=== PATIENT | female | born 1955 | race Caucasian/White ===

== ENCOUNTER 2017-04-03 08:57 | Inpatient (IN) | payer BC ==
[~2017-04-03] VITALS: Ht 149.9 cm; Wt 78.2 kg
[~2017-04-03 08:57] MED LIST: ASPIRIN81 M2 PO; LEXAPRO10 MG PO; MEVACOR40 MG PO; NORVASC10 MG PO; PREVACID15 MG PO; ZESTORETIC 20-1 EAC1 PO
[2017-04-24] MEDS ORDERED: CRESTOR20 MG PO (14:09)
[2017-04-26] VITALS (9 sets, daily range): BP systolic 101–145; BP diastolic 43–68
[2017-04-26 12:11] LABS: METH RESISTANT S AUREUS PCR POSITIVE (NEGATIVE)
[2017-04-26 12:21] LABS: PROBE CHECK PASS
[2017-04-26] MEDS ORDERED: TRAMADOL HCL50 MG PO (15:07)
[2017-04-27 00:05] VITALS: BP 126/50
[2017-04-27 05:17] VITALS: BP 138/60
[2017-04-27 08:47] VITALS: BP 159/80
[2017-04-27 11:13] VITALS: BP 127/57
== END 2017-04-27 12:38 | disposition home or self-care (01) | DRG 39 ==
LOC: 2SOUTH 08:57 → 4WEST 04-26 10:44 → 2SOUTH 04-26 13:46 → 4EAST 04-26 17:58 → 4WEST 04-26 17:58 → 4EAST 04-27 12:38
PROVIDERS: Surgery
DX: I65.23 Occlusion and stenosis of bilateral carotid arteries (principal); I10 Essential (primary) hypertension; E78.00 Pure hypercholesterolemia, unspecified; K21.9 Gastro-esophageal reflux disease without esophagitis; K44.9 Diaphragmatic hernia without obstruction or gangrene; F41.9 Anxiety disorder, unspecified; Z22.322 Carrier or suspected carrier of Methicillin resistant Staphylococcus aureus; Z86.73 Personal history of transient ischemic attack (TIA), and cerebral infarction without residual deficits; Z79.82 Long term (current) use of aspirin
CPT/HCPCS: 87641; 93005; 94799; C1768; J0690; J1100; J1644; J1650; J2250; J2405; J2720; J2765; J2795; J3010; S0020